=== PATIENT | male | born 1965 | race Two or more races ===

== ENCOUNTER 2024-09-03 19:09 | Emergency (ER) | payer MEDICAID, SELFPAY ==
[2024-09-03 19:10] VITALS: BMI 24.2
[2024-09-03 19:38] VITALS: BP 169/90; PULSE 80; RESP 18; TEMP 36.8; O2SAT 99; BMI 25.4
--- NOTE | 2024-09-03 19:49 | XR_ITS ---
Examination: Ribs, right, with PA chest, 4 views Technique: Chest PA, RIBS AP, RPO, LPO, 4 views Exam date and time: September 03, 2024 1950 hrs. Comparison January 18, 2019 Indications: Patient fell today with injury to the right ribs, right rib pain Findings: Normal heart size No pneumothorax No acute rib fractures Impression: No pneumothorax, pulmonary contusion or hemothorax No acute rib fractures
--- NOTE | 2024-09-03 19:52 | PD.EDBACK ---
ED Back Injury Pain RME/HPI General Chief Complaint: Back Pain/Injury Stated Complaint: BACK PAIN FROM FALL Time Seen by Provider: 09/03/24 19:49 Arrival date/time: 09/03/24 19:09 59M with no significant PMH presents to ED with R upper back/side/rib pain after fall 2 days ago down some steps. Patient denies hitting his head/neck, N/V, dizziness, and weakness. Limitations: no limitations Related Data Home Medications ?Medication ?Instructions ?Recorded ?Confirmed No Known Home Medications 08/14/19 08/14/19 Allergies Allergy/AdvReac Type Severity Reaction Status Date / Time No Known Allergies Allergy Verified 08/14/19 13:51 Review of Systems Review of Systems Systems Reviewed: All systems reviewed, normal except as documented Constitutional Constitutional: Reports system reviewed and no additional complaints, except as documented, Denies fever(s) and Denies headache(s) ENT Ears, Nose, Mouth, and Throat: Denies disequilibrium and Denies headache(s) Cardiovascular Cardiovascular: Reports system reviewed and no additional complaints, except as documented, Denies chest pain and Denies dyspnea Respiratory Respiratory: Reports system reviewed and no additional complaints, except as documented, Denies cough and Denies dyspnea Gastrointestinal Gastrointestinal: Reports system reviewed and no additional complaints, except as documented, Denies abdominal pain, Denies nausea and Denies vomiting Musculoskeletal Musculoskeletal: Reports as per HPI and Reports back pain Neurologic Neurologic: Reports system reviewed and no additional complaints, except as documented, Denies confusion, Denies disequilibrium and Denies headache(s) Psychiatric Psychiatric: Denies confusion Past Medical History Past Medical History CARDIAC: Negative Cardiac Disorders or Congestive Heart Failure RESPIRATORY: Negative Chronic Obstructive Pulmonary Disease (COPD) or Asthma GENITOURINARY: Negative Renal Disease ENDOCRINE: Negative Diabetes Mellitus Type 1 or Diabetes Mellitus Type 2 HEMATOLOGIC: Negative Sickle Cell Disease Social History SMOKING STATUS: Never smoker SUBSTANCE USE: marijuana (smokes) and methamphetamine (smokes) ED Exam General Limitations: Present no limitations General appearance: Present alert and in no apparent distress Head Head exam: Present atraumatic Eye Eye exam: Present normal appearance, PERRL and EOMI ENT ENT exam: Present normal exam, normal oropharynx and mucous membranes moist Neck Neck exam: Present normal inspection, full ROM and trachea midline Chest Chest inspection: Present normal inspection and symmetric chest wall rise Respiratory Respiratory exam: Present normal lung sounds bilaterally Cardiovascular Cardiovascular exam: Present regular rate, normal rhythm and normal heart sounds Abdominal Exam Abdominal exam: Present soft and normal bowel sounds Extremities Exam Extremities exam: Present normal inspection and full ROM Back Exam Back exam: Present full ROM and tenderness Neurological Exam Neurological exam: Present alert, oriented X3 and CN II-XII intact Psychiatric Psychiatric exam: Present normal affect and normal mood Skin Skin exam: Present warm, dry, intact and normal color Course Quality Measures none Orders Category Date Time Status CT chest wo con Stat Exams 09/03/24 20:21 Completed XR ribs RT min 3V w CXR1V Stat Exams 09/03/24 19:49 Completed Vital Signs Vital signs: Vital Signs Temperature 98.3 F 09/03/24 19:38 Pulse Rate 80 09/03/24 19:38 Respiratory Rate 18 09/03/24 19:38 Blood Pressure 169/90 H 09/03/24 19:38 Pulse Oximetry (%) 99 09/03/24 19:38 Oxygen Delivery Method Room Air 09/03/24 19:38 O2 at 99% on RA and WNLs Back Pain / Injury MDM Narrative MDM Narrative:: 59M with no significant PMH presents to ED with R upper back/side/rib pain after fall 2 days ago down some steps. Patient denies hitting his head/neck, N/V, dizziness, and weakness. Physical exam reveals normal pupil response and EOM. ENT clear and lungs clear. Some R upper back/side rib tenderness. No midline back/neck tenderness. ROM intact. Gait normal. Patient is afebrile, calm, and alert. CT reveals non-displaced R 4th and 5th rib fx. Given nutrition counselor. Patient data External records reviewed:: [facility] previous records Clinical information provided by:: patient Social determinants that could affect healthcare access:: none Patient has the following chronic illnesses:: none How is presenting disease/condition affected by chronic disease/condition?: no chronic disease Evaluation data The following diagnostics were reviewed and interpreted by me:: radiology exam(s) Lab and/or radiology exams considered but not ordered:: ordered Interpretation Summary: above Medications / Prescriptions Medications or Prescriptions considered but not ordered:: not ordered Medication administrations:: n/a Consultations Consultation(s) initiated? (list below): No Diagnosis Differential diagnosis back pain/injury: lumbar radiculopathy, sciatica, strain of lumbar region, renal colic, pyelonephritis, thoracic back pain, AAA, discitis and other (rib fx) Most likely diagnosis given after review of the tests above:: rib fx Admission Indicated Admission indicated?: not indicated Admission Request Was there a request for admission?: No Disposition Plan Disposition Plan: Discharge Discharge Attestation Discharge Attestation: The patient and all family members were given an opportunity to ask questions and understood the discharge instructions. Discharge instructions specifically effects, indications for sooner follow up or return to the emergency department, and the expected course of current diagnosis. Patient condition: Stable Discharge Plan Plan Patient Disposition: HOME (Self Care) Disposition Comment: Stable Prescriptions/Referrals Prescriptions/Med Rec: No Action No Known Home Medications Referrals: No Primary/Family,Physician [Primary Care Provider] - In 1 week Problem List Clinical Impression: Fracture of rib Patient/Caregiver Discharge Instructions Education Materials: ED Rib Fracture Additional Instructions: Please follow-up with PCP within 24-48 hours and return immediately if symptoms worsen. FYI: 4th and 5th ribs are broken. Print Language: Estonian Stand Alone Forms: Patient Portal Info Letter MIKAELA/SOURCING ANALYST Supervising Physician MIKAELA/NAYAN Supervising Physician: Dr. Desai
--- NOTE | 2024-09-03 20:21 | XR_ITS ---
Examination: CT chest, without intravenous contrast. Sagittal and coronal 2-D reconstructions. Exam date and time: August 31, 2024 at 2030 hrs. Indications: Upper back pain difficulty breathing after falling down stairs 2 days ago CTDI:vol (mGy) 9.24 DLP: (mGycm) 319 Technique: Multiple 3.0 mm axial sections of the chest to been obtained. Bone and lung density settings are obtained. Sagittal and coronal 2-D reconstructions have been obtained. Low dose protocols were performed. One or more of the following dose reduction techniques were used; automated exposure control, adjustment of the mA and/or KV according to patient size, use of iterative reconstruction technique. Findings: Thoracic aorta pulmonary arteries intact No hemopericardium No pneumothorax pulmonary contusion or hemothorax The manubrium the body the sternum intact No acute thoracic vertebral body compression fractures Suspicious for acute nondisplaced fractures right fourth fifth ribs anteriorly No liver splenic laceration Contracted gallbladder No pancreatic mass Abdominal aorta visualized appears intact Impression: Suspicious for acute nondisplaced fracture right fourth and fifth ribs anteriorly, clinical correlation advised Thoracic aorta pulmonary arteries intact No hemopericardium, pneumothorax, pulmonary contusion or hemothorax
== END 2024-09-03 22:00 | disposition home or self-care (01) ==
PROVIDERS: Emergency Provider Emergency Medicine
DX: S22.41XA Multiple fractures of ribs, right side, initial encounter for closed fracture (principal); W10.9XXA Fall (on) (from) unspecified stairs and steps, initial encounter
CPT/HCPCS: 71101; 71250; 99284